=== PATIENT | male | born 1960 | race African-American/Black ===

== ENCOUNTER 2025-08-27 14:52 | Emergency (ER) | payer BC, SELFPAY ==
--- OUTSIDE RECORDS SUMMARY | 2025-08-20 11:20 | XMS_ITS | Encounter Summary ---
Author Organization [facility] Address [address] [place] [address] Phone Care Team Providers Care Plan Consultant Name Role Phone Marino Baig MD Primary Care Provider [phone] Reason for Referral * Consultation (Routine) - AuthorizedSpecialtyDiagnoses / ProceduresReferred By ContactReferred To ContactCardiology Diagnoses Paroxysmal atrial fibrillation (Multi) Procedures Follow Up In Cardiology Stella Clarke MD [address] [place] [address], [address] [address] Phone: tel: fax: Stella Clarke MD [address] [place], [place] [address] [place] [address], [address] [address] Phone: tel: fax: Referral IDStatusReasonStart DateExpiration DateVisits RequestedVisits [id number]/24/202511/24/202611 Reason for Visit * ReasonCommentsFollow-up6 month follow up for Cardiomyopathy, unspecified type * Consultation (Routine) - AuthorizedSpecialtyDiagnoses / ProceduresReferred By ContactReferred To ContactCardiology Diagnoses Cardiomyopathy, unspecified type (Multi) Procedures Follow Up In Cardiology Stella Clarke MD [address] [facility], [address] [address] Phone: tel: fax: Stella Clarke MD [address] [facility], [address] [address] Phone: tel: fax: Referral IDStatReesaStmark DateExpiration DateVisits RequestedVisits [id number]/23/20248/ Encounter Details DateTypeDepartmentCare Team (Latest Contact Info)Xzjokccwgod99/24/2025 11:20 AM ESTOffice Visit [facility] [address] [phone] Stella Clarke MD [address] [facility], [address] [address] Dyspnea, unspecified type (Primary Dx); Cardiomyopathy, unspecified type (Multi); Paroxysmal atrial fibrillation (Multi); Palpitations; Mixed hyperlipidemia; Essential hypertension, benign; BMI 33.0-33.9,adult; Never smoked tobacco Discharge Disposition: Home Social History Tobacco UseTypesPacks/DayYears UsedDateSmoking Tobacco: NeverSmokeless Tobacco: NeverAlcohol UseStandard Drinks/WeekCommentsYes4 (1 standard drink = 0.6 oz pure alcohol)Sex and Gender InformationValueDate RecordedSex Assigned at BirthNot on fileLegal WhaFrae50/26/2022 6:21 PM ESTGender IdentityNot on fileSexual OrientationNot on filedocumented as of this encounter Last Filed Vital Signs Vital SignReadingTime TakenCommentsBlood Uuttovhu450/80110/20/2024 11:41 AM EST Elmjj208808/20/2025 11:41 AM ESTTemperature--Respiratory Rate--Oxygen Saturation-- Inhaled Oxygen Concentration--Eetjdq672 kg (248 lb)08/20/2025 11:41 AM ESTHeight 182.9 cm (6')08/20/2025 11:41 AM ESTBody Mass Index33.6308/20/2025 11:41 AM EST documented in this encounter Functional Status * BPAnswerDate of PfxfktqmhjKqprwg151/8011 11:41 AM Marlene Rahman CMA * PulseAnswerDate of OhhggbhnuiUwmcdw3545/24/2025 11:41 AM Marlene Rahman CMA documented as of this encounter Patient Instructions * Patient Instructions* Debbie North LPN - 08/20/2025 11:20 AM EST Please bring all medicines, vitamins, and herbal supplements with you when you come to the office. Prescriptions will not be filled unless you are compliant with your follow up appointments or have a follow up appointment scheduled as per instruction of your physician. Refills should be requested at the time of your visit. BMI was above normal measurement. Current weight: 112 kg (248 lb) Weight change since last visit (-) denotes wt loss -2 lbs Weight loss needed to achieve BMI 25: 64.1 Lbs Weight loss needed to achieve BMI 30: 27.3 Lbs Provided instructions on dietary changes. * Attachments The following attachments cannot be sent through Care Everywhere. * Heart Healthy Diet (Azeri) documented in this encounter Progress Notes * Stella Clarke MD - 08/20/2025 11:20 AM EST Chief Complaint Patient presents with Follow-up 6 month follow up for Cardiomyopathy, unspecified type Christ Gardner is a 65 y.o. male HPI Patient here for follow-up and management for previous evaluation for fatigue tiredness and shortness of breath, hypertension and remote history of atrial fibrillation. Since last time I saw him he denies any cardiac complaint. Described functional class I. He denies chest pain, lightheadedness, dizziness or syncope. His event monitor failed to demonstrate any arrhythmia. ASSESSMENT: 1. Remote evaluation for symptoms of fatigue, tiredness and shortness of breath following recent COVID-19 infection and pneumonia. Completely resolved. [facility] 2 hypertension well-controlled 3. Remote episode paroxysmal atrial fibrillation no recent recurrence or palpitation his event monitor failed to demonstrate any arrhythmia 4. Mild cardiomyopathy in the past, improved medical therapy. Send echocardiogram showed LVEF around 50-55% 5. No evidence of sleep apnea clinically. 6. Questionable history of stroke seen by neurology. 7.. Hyperlipidemia starting on atorvastatin suboptimally controlled RECOMMENDATIONS: 1. We discussed anticoagulation. His recent event monitor failed to demonstrate any arrhythmia. Patient elected to remain on antiplatelet therapy 2. I reviewed the result of his recent lab work and I suggest switching him from atorvastatin to rosuvastatin 40 to optimize lipid management 3. I advised him to exercise and try to lose some weight 4. I advised him to notify me change in cardiac status or symptoms 5. I will see him back in 1 year and follow-up Review of Systems All other systems reviewed and are negative. Vitals: 08/20/25 1141 BP: 135/80 BP Location: Left arm Patient Position: Sitting Pulse: 64 Weight: 112 kg (248 lb) Height: 1.829 m (6') Objective Physical Exam Constitutional: Appearance: Normal appearance. HENT: Nose: Nose normal. Neck: Vascular: No carotid bruit. Cardiovascular: Rate and Rhythm: Normal rate. Pulses: Normal pulses. Heart sounds: Normal heart sounds. Pulmonary: Effort: Pulmonary effort is normal. Abdominal: General: Bowel sounds are normal. Palpations: Abdomen is soft. Musculoskeletal: General: Normal range of motion. Cervical back: Normal range of motion. Right lower leg: No edema. Left lower leg: No edema. Skin: General: Skin is warm and dry. Neurological: General: No focal deficit present. Mental Status: He is alert. Psychiatric: Mood and Affect: Mood normal. Behavior: Behavior normal. Thought Content: Thought content normal. Judgment: Judgment normal. Allergies Penicillins Current Medications Current Outpatient Medications Medication Instructions ascorbic acid, vitamin C, 500 mg capsule 1 capsule, Daily aspirin 81 mg, Daily celecoxib (CELEBREX) 200 mg, Daily before breakfast cholecalciferol (VITAMIN D-3) 125 mcg, Daily FLUoxetine (PROZAC) 20 mg, Daily glucosamine/chondr gusman A sod (OSTEO BI-FLEX ORAL) 1 capsule, Daily multivit-min/ferrous fumarate (MULTI VITAMIN ORAL) 1 tablet, Daily omeprazole (PRILOSEC) 20 mg, Daily rosuvastatin (CRESTOR) 40 mg, oral, Daily Tiadylt ER 360 mg, oral, Daily Assessment/Plan 1. Dyspnea, unspecified type 2. Cardiomyopathy, unspecified type (Multi) Follow Up In Cardiology 3. Paroxysmal atrial fibrillation (Multi) Follow Up In Cardiology 4. Palpitations 5. Mixed hyperlipidemia rosuvastatin (Crestor) 40 mg tablet 6. Essential hypertension, benign 7. BMI 33.0-33.9,adult 8. Never smoked tobacco Scribe Attestation By signing my name below, IDebbieTrevor HERCULES , Scribe attest that this documentation has been prepared under the direction and in the presence of MD Earnest. Provider Attestation - Scribe documentation All medical record entries made by the Scribe were at my direction and personally dictated by me. Ihave reviewed the chart and agree that the record accurately reflects my personal performance of the history, physical exam, discussion and plan. documented in this encounter Plan of Treatment DateTypeDepartmentCare Team (Latest Contact Info)Flwfyrjsdga02/24/2026 1:50 PM ESTOffice Visit [facility] [address] [phone] Stella Clarke MD [address] [facility], [address] [address] documented as of this encounter Visit Diagnoses Diagnosis Dyspnea, unspecified type- Primary Cardiomyopathy, unspecified type (Multi) Paroxysmal atrial fibrillation (Multi) Atrial fibrillation Palpitations Mixed hyperlipidemia Essential hypertension, benign BMI 33.0-33.9,adult Never smoked tobacco documented in this encounter Additional Health Concerns AssessmentNoted TimeA fall risk assessment has been completed for the patient 05/19/2024 10:38 AM EDTdocumented as of this encounter Care Teams Team MemberRelationshipSpecialtyStart DateEnd Date Marino Baig MD [address] [place] [address] PCP - GeneralInternal Dodccxsz35/24/25documented as of this encounter
[2025-08-27 14:58] VITALS: BP 172/105; PULSE 86; TEMP 37; O2SAT 99; BMI 32.5
--- NOTE | 2025-08-27 15:17 | ED_ITS ---
HPI HPI - General Adult General Chief complaint: Extremity Problem, Nontraumatic Stated complaint: L CALF PAIN Time Seen by Provider: 08/27/25 15:04 Source: patient Mode of arrival: Wheelchair History of Present Illness HPI narrative: Patient is a 65-year-old male with a PMH of stroke and arrhythmia that presents with a few days of intermittent left calf pain. He denies any swelling and has not had any previous PE or DVTs. He denies any blunt trauma or injury to this leg. He notes he does have arthritis in the knees. He was at work today and when the pain started it last for about a minute and states it made him yell out and he almost fell to his knees. Related Data Home Medications ?Medication ?Instructions ?Recorded ?Confirmed aspirin 81 mg capsule 81 mg PO DAILY 08/27/2510/21 atorvastatin 40 mg tablet mg 08/27/25 celecoxib 200 mg capsule mg 08/27/25 diltiazem HCl 360 mg capsule,24 mg PO 08/27/25 hr,extended release (Tiadylt ER) fluoxetine 20 mg capsule mg 08/27/25 omeprazole 20 mg capsule,delayed mg 08/27/25 release Previous Rx's ?Medication ?Instructions ?Recorded ibuprofen 600 mg tablet 600 mg PO Q8H 5 days #15 tab s 08/27/25 Allergies Allergy/AdvReac Type Severity Reaction Status Date / Time Penicillins Allergy Unknown Unknown Verified 08/27/25 15:03 Opioid HPI Opioid Management Most Recent Opioid Data: Last Pain Scale 10 Today, 14:58 Review of Systems ROS Status of ROS 10 or more systems reviewed and unremark able except as noted in history and below PFSH PFSH Social History Little interest or pleasure in doing things: not at all Feeling down, depressed, or hopeless: not at all Exam Narrative Exam Narrative: General: No distress, age-appropriate Skin: Warm, dry, no pallor. No rash. Head: Normocephalic, atraumatic. Neck: Supple, non-tender. Eye: Pupils are equal, round and EOMI. No scleral icterus. Ears, Nose, Mouth, and Throat: No nasal mucosal hypertrophy. Oral mucosa is moist, no posterior oropharynx erythema, uvula is mid-line Cardiovascular: Regular Rate and Rhythm without murmur, gallop or rub. Respiratory: No accessory muscle use or respiratory distress. Back: No midline thoracic or lumbar vertebral tenderness. Musculoskeletal: Full ROM of all extremities, no calf or popliteal tenderness, no palpable cords. Negative Homans on the left. No lower extremity edema. DP Pulse nonpalpable, Doppler audible. Neurological: A&O x4. No cranial nerve dysfunction observed. No truncal ataxia. Moves all extremities. Sensation intact. Psychiatric: Cooperative and interactive. Normal mood and affect. Constitutional Vital Signs, click to edit/add: Last Vital Signs Temp 98.6 F 08/27/25 14:58 Pulse 90 08/27/25 15:31 Resp 16 08/27/25 14:58 BP 162/98 H 08/27/25 18:05 Pulse Ox 99 08/27/25 18:05 O2 Del Method Room Air 08/27/25 14:58 Documenting provider has reviewed patient's vital signs: yes Course Vital Signs Vital signs: Vital Signs Temperature 98.6 F 08/27/25 14:58 Pulse Rate 86 08/27/25 14:58 Respiratory Rate 16 08/27/25 14:58 Blood Pressure 172/105 H 08/27/25 14:58 Pulse Oximetry 99 08/27/25 14:58 Oxygen Delivery Method Room Air 08/27/25 14:58 Temperature 98.6 F 08/27/25 14:58 Pulse Rate 90 08/27/25 15:31 Respiratory Rate 16 08/27/25 14:58 Blood Pressure 162/98 H 08/27/25 18:05 Pulse Oximetry 99 08/27/25 18:05 Oxygen Delivery Method Room Air 08/27/25 14:58 Medical Decision Making [facility] Narrative Medical decision making narrative: 65-year-old male with history of stroke and A.Fib presenting with several days of intermittent left calf pain, including a sudden severe episode today. Differential included DVT, arterial insufficiency, muscle strain/spasm, tendon injury, and neuropathic pain. Patient denied swelling, redness, trauma, or neurologic symptoms. EKG on arrival in NSR, HR 80, abnormal left axis deviation. Physical exam without distal neurovascular deficits or signs of ischemia. Given concern for possible vascular etiology, a venous Doppler ultrasound of the left lower extremity was obtained and was negative for DVT. CBC and BMP were within normal limits, making infection, metabolic disturbance, or significant systemic process unlikely. Presentation most consistent with musculoskeletal etiology such as muscle strain or spasm. Patient on Celebrex for his knees, will have him discontinue this and trial ibuprofen 600 mg every 8 hours for 3 to 5 days to evaluate for improvement. No evidence of acute limb ischemia, compartment syndrome, or venous thromboembolism at this time. Thorough discussion with patient about his lab results and further workup possibly needed if his pain persist despite NSAIDs and activity modification. Patient was stable for discharge with supportive care instructions, return precautions, and recommendation for outpatient follow- up with PCP. Differential Diagnosis Differential Diagnosis: DVT, PAD/claudication, cramp, calf strain, neuropathic Lab Data Lab results reviewed: Yes I reviewed the patient's lab results Labs: Lab Results 08/27/25 Range/Units 15:24 WBC 6.0 (4.0-11.0) 10^3/uL RBC 4.85 (4.70-6.10) 10^6/uL Hgb 15.1 (14.0-18.0) g/dL Hct 44.2 (42.0-54.0) % MCV 91.1 (80.0-94.0) fL MCH 31.1 (25.9-34.0) pg MCHC 34.2 (29.9-35.2) g/dL RDW 12.5 (11.0-15.0) % Plt Count 213 (150-450) 10^3/uL MPV 9.4 L (9.5-13.5) fL Neut % (Auto) 54.9 (43.0-75.0) % Lymph % (Auto) 32.3 (20.5-60.0) % [place] % (Auto) 9.7 (1.7-12.0) % Eos % (Auto) 2.0 (0.9-7.0) % Baso % (Auto) 0.8 (0.2-2.0) % Neut # (Auto) 3.3 (1.4-6.5) 10^3/uL Lymph # (Auto) 1.9 (1.2-3.8) 10^3/uL [place] # (Auto) 0.6 (0.3-0.8) 10^3/uL Eos # (Auto) 0.1 (0.0-0.7) 10^3/uL Baso # (Auto) 0.1 (0.0-0.1) 10^3/uL Abs Immat Gran (auto) 0.02 (0.00-0.03) 10^3/uL Imm/Tot Granulo (auto) 0.3 (0.0-0.5) % Sodium 141 (136-145) mmol/L Potassium 4.2 (3.5-5.1) mmol/L Chloride 102 (98-107) mmol/L Carbon Dioxide 30.0 (21.0-32.0) mmol/L Anion Gap 13.2 BUN 16.0 (7.0-18.0) mg/dL Creatinine 1.05 (0.70-1.30) mg/dL Est GFR ( Amer) >60 (>=60 mL/min/1.73m^2) Est GFR (Non-Af Amer) >60 (>=60 mL/min/1.73m^2) BUN/Creatinine Ratio 15.2 Glucose 99 (74-106) mg/dL Calcium 9.2 (8.5-10.1) mg/dL Imaging Data Left US Doppler LE: Radiologist's impression: No evidence of deep venous thrombosis in the left lower extremity ECG Data Attestation: ?I have reviewed the pertinent ECG results. Discharge Plan Discharge Chief Complaint: Extremity Problem, Nontraumatic Clinical Impression: Calf pain Patient Disposition: Home, Self-Care Time of Disposition Decision: 17:33 Condition: Good Mode of Transportation: Private Vehicle Prescriptions / Home Meds: New ibuprofen 600 mg tablet 600 mg PO Q8H 5 Days Qty: 15 0RF No Action celecoxib 200 mg capsule atorvastatin 40 mg tablet diltiazem HCl [Tiadylt ER] 360 mg capsule,extended release 24 hr PO omeprazole 20 mg capsule,delayed release(DR/EC) fluoxetine 20 mg capsule aspirin 81 mg capsule 81 mg PO DAILY Print Language: Telugu Instructions: Leg Cramps (ED) Additional Instructions: Stop Celebrex, we have prescribed you ibuprofen 600 mg to take every 8 hours. Hydration Muscle cramps can be triggered by dehydration or electrolyte imbalance. * Drink plenty of water over the next 24?48 hours. When to Seek Immediate Medical Attention Return to the ER right away if you experience: * Increasing or constant calf pain * New swelling, redness, or warmth in the leg * Numbness, tingling, coldness, or pale color in the foot * Inability to walk or worsening weakness * Chest pain, shortness of breath, or sudden dizziness * Any new or concerning symptoms Follow-Up * Follow up with your primary care provider within 3?5 days for reassessment. * If episodes of sudden severe leg pain continue, follow-up may include additional imaging such as an arterial study or musculoskeletal evaluation. Referrals: Physician,Non-Staff, [Primary Care Provider] - 1 week Discharge Date/Time: 08/27/25 18:11
--- NOTE | 2025-08-27 15:21 | ECG_ITS ---
[facility] Test Date: 2025-08-27 Pat Name: DERIK MADDOX Department: Room: - Gender: Male Medical Observer: : 1960 Requested By: [id number] Order Number: [id number] Reading MD: Micah Schaefer Measurements Intervals [place]le Rate: 80 P: 27 OR: 132 QRS: -31 QRSD: 94 T: 14 QT: 380 QTc: 415 Interpretive Statements 1100 Sinus rhythm 5222 Moderate voltage criteria for LVH, may be normal variant 7200 Abnormal left axis deviation 9130 borderline ECG Compared to ECG 08/12/2020 07:50:38 Left ventricular hypertrophy now present Sinus tachycardia no longer present Electronically Signed On 08-27-2025 15:57:13 EST by Micah Schaefer
--- OUTSIDE RECORDS SUMMARY | 2025-08-27 15:30 | XMS_ITS | Clinical Summary ---
Author Organization [facility] Address [address] [place] [address] Phone Care Team Providers Care Psychiatric Technician Name Role Phone Marino Baig MD Primary Care Provider [phone] Allergies Active AllergyReactionsCriticalityNoted JdyeVipxuzybNwwfktykmvxUxyxwbr23/15/2024 Medications MedicationSigDispense QuantityRefillsLast FilledStart DateEnd DateStatus multivit-min/ferrous fumarate (MULTI VITAMIN ORAL) Take 1 tablet by mouth once daily.Active ascorbic acid, vitamin C, 500 mg capsule Take 1 capsule by mouth once daily.Active aspirin 81 mg EC tablet Take 1 tablet (81 mg) by mouth once daily.2Active cholecalciferol (Vitamin D-3) 125 MCG (5000 UT) capsule Take 1 capsule (125 mcg) by mouth once daily.Active omeprazole (PriLOSEC) [address] capsule Take 1 capsule (20 mg) by mouth once daily.Active Tiadylt ER 360 mg 24 hr capsule Indications:PalpitationsTAKE 1 CAPSULE BY MOUTH EVERY DAY 90 capsule 5Active FLUoxetine (PROzac) 20 mg capsule 1 capsule (20 mg) once daily.Active celecoxib (CeleBREX) 200 mg capsule Take 1 capsule (200 mg) by mouth once daily in the morning. Take before meals. 5Active glucosamine/chondr gusman A sod (OSTEO BI-FLEX ORAL) Take 1 capsule by mouth early in the morning..Active rosuvastatin (Crestor) 40 mg tablet Indications:Mixed hyperlipidemiaTake 1 tablet (40 mg) by mouth once daily. 90 tablet 6Active atorvastatin (Lipitor) 40 mg tablet Take 1 tablet (40 mg) by mouth once daily.Discontinued (Therapy completed) Active Problems ProblemNoted DateDiagnosed DateNever smoked ketuiag5808/20/2025MI 33.0-33.9,adult 05/19/2024Stroke (cerebrum)05/19/20249004Eujmtgmbehjntz16/15/8805Ppeohbe29/15/2024 Essential hypertension, xneptl0410/11/20236548Bihomhluxfzfvu15/15/2024alpitations 10/11/2023aroxysmal atrial qzglsefafcnb79/15/2024 Encounters DateTypeDepartmentCare NqxdIghrjoduytq72/24/2025 11:20 AM ESTOffice Visit [address] [phone] Stella Clarke MD Dyspnea, unspecified type (Primary Dx); Cardiomyopathy, unspecified type (Multi); Paroxysmal atrial fibrillation (Multi); Palpitations; Mixed hyperlipidemia; Essential hypertension, benign; BMI 33.0-33.9,adult; Never smoked tobacco Discharge Disposition: Home08/20/20258763Qbbivp81/03/2025Refill [address] [phone] Stella Clarke MD Palpitationsfrom Last 3 Months Immunizations ImmunizationAdministration DatesNext DueFlu vaccine, trivalent, preservative free, no egg protein, age 6 months or greater (Flucelvax)07/18/2025 Family History Medical HistoryRelationNameCommentsHeart diseaseFatherHypertensionFatherHeart diseaseMotherHypertensionMotherLung cancerMotherRelationNameStatusCommentsFather Mother Social History Tobacco UseTypesPacks/DayYears UsedDateSmoking Tobacco: NeverSmokeless Tobacco: Never Tobacco Cessation:Counseling Given: Not Answered Alcohol UseStandard Drinks/WeekCommentsYes4 (1 standard drink = 0.6 oz pure alcohol)Sex and Gender InformationValueDate RecordedSex Assigned at BirthNot on fileLegal EpxPrue97/26/2022 6:21 PM ESTGender IdentityNot on fileSexual OrientationNot on file Last Filed Vital Signs Vital SignReadingTime TakenCommentsBlood Diapwghg355/80110/20/2024 11:41 AM EST Qgszd072408/20/2025 11:41 AM ESTTemperature--Respiratory Rate--Oxygen Saturation-- Inhaled Oxygen Concentration--Wivdph905 kg (248 lb)08/20/2025 11:41 AM ESTHeight 182.9 cm (6')08/20/2025 11:41 AM ESTBody Mass Index33.6308/20/2025 11:41 AM EST Plan of Treatment DateTypeDepartmentCare Team (Latest Contact Info)Bdctadqnoin47/24/2026 1:50 PM ESTOffice Visit [facility] [address] [facility] [place] [address] [place] [address] Stella Clarke MD [address] [facility] [address] [place] [address] [place] [address] Health MaintenanceDue DateLast DoneCommentsCT Huuqfsqrjjfi1961FIT-DNA (Cologuard)1960FIT1960HIV Rdxuwakrg1961Lipid Panel1961 Poduxdiwjmrul1961MMR Vaccines (1 of 1 - Standard series)2Diabetes Byxeyfdya49/24/1979Hepatitis C Nzvinumvw52/24/1979DTaP/Tdap/Td Vaccines (1 - Tdap)1983PSA Prostate Cancer Ggbcgeszs56/24/2006Pneumococcal Vaccine (1 of 1 - PCV)2011Zoster Vaccines (1 of 2)2011Yearly Adult Physical , 07/11/2024, 02/09/20230864Jhydukwymqa92 Colorectal Cancer Vgkxgqsyp97/23/2034RSV High Risk: (Elderly (60+) or Population) (1 - 1-dose 75+ series)6COVID-19 VaccineCompleted 07/18/2025, 07/11/2024, 07/25/2023, Additional history existsInfluenza Vaccine Otwjviedj68/22/2025HIB VaccinesAged OutNo longer eligible based on patient's age to complete this topicHPV VaccinesAged OutNo longer eligible based on patient's age to complete this topicHepatitis A VaccinesAged OutNo longer eligible based on patient's age to complete this topicHepatitis B VaccinesAged OutNo longer eligible based on patient's age to complete this topicIPV VaccinesAged OutNo longer eligible based on patient's age to complete this topicMeningococcal VaccineAged OutNo longer eligible based on patient's age to complete this topic Rotavirus VaccinesAged OutNo longer eligible based on patient's age to complete this topic Insurance Care Teams Team MemberRelationshipSpecialtyStart DateEnd Date Marino Baig MD [address] [place] [phone] PCP - GeneralInternal Bytevxaj88/24/25
--- OUTSIDE RECORDS SUMMARY | 2025-08-27 15:30 | XMS_ITS | Clinical Summary ---
Author Organization [facility] Healthcare Address [address] [place] [address] Care Team Providers Care Operational Risk Consultant Name Role Phone Unavailable Primary Care Provider Unavailabl e Social History Tobacco UseTypesPacks/DayYears UsedDateSmoking Tobacco: Never AssessedSex and Gender InformationValueDate RecordedSex Assigned at BirthNot on fileLegal Sex Male12/09/2022 7:21 PM EDTGender IdentityNot on fileSexual OrientationNot on file Last Filed Vital Signs Vital SignReadingTime TakenCommentsBlood Hvqovbnn402/9112 12:00 PM EST Pulse--Temperature--Respiratory Rate--Oxygen Saturation--Inhaled Oxygen Concentration--Tgkcah908 kg (261 lb 12.8 oz)12/11/2021 12:00 PM MIVJnufwl152.9 cm (6')12/11/2021 12:00 PM EDTBody Mass Index35.51012/11/2021 12:00 PM EDT Plan of Treatment DateTypeDepartmentCare Team (Latest Contact Info)Exphjcgwqtj85/22/2025 10:00 AM ESTOffice Visit [facility] [address] [facility] [place] [place] [address] Bud Elizalde, [address] [place], [place] [id number] Health MaintenanceDue DateLast DoneCommentsCT Mpopjztsgmvb1961olonoscopy 1961olorectal Cancer Ploqptbxh1961FIT-DNA1961FIT1961 FOBT1961 7972Dsptbaaojjsvs1961OVID-19 Vaccine ( season) /2023, 07/25/2023, 03/13/2022, Additional history existsInfluenza AjnrwcaAiferufpf47/22/2025, 07/11/2024, 07/25/2023, Additional history exists Pneumococcal Vaccine: Pediatrics (0 to 5 Years) and At-Risk Patients (6 to 64 Years)Aged OutNo longer eligible based on patient's age to complete this topic Insurance
--- OUTSIDE RECORDS SUMMARY | 2025-08-27 15:30 | XMS_ITS | Encounter Summary ---
Author Organization [facility] Address [address] [place] [address] Phone Care Team Providers Care Laminating Machine Operator Helper Name Role Phone Marino Baig MD Primary Care Provider [phone] Encounter Details DateTypeDepartmentCare Team (Latest Contact Info)Ernsxfgzaap36/24/2025Travel Social History Tobacco UseTypesPacks/DayYears UsedDateSmoking Tobacco: NeverSmokeless Tobacco: NeverAlcohol UseStandard Drinks/WeekCommentsYes4 (1 standard drink = 0.6 oz pure alcohol)Sex and Gender InformationValueDate RecordedSex Assigned at BirthNot on fileLegal YjuJkbw04/26/2022 6:21 PM ESTGender IdentityNot on fileSexual OrientationNot on filedocumented as of this encounter Functional Status * BPAnswerDate of XlpbwcsvwgLdiyuq368/80110/20/2024 11:41 AM Marlene Rahman CMA * PulseAnswerDate of IghtjzrktnOszxfr0868/24/2025 11:41 AM Marlene Rahman CMA documented as of this encounter Plan of Treatment DateTypeDepartmentCare Team (Latest Contact Info)Lscmiqxwowu17/24/2026 1:50 PM ESTOffice Visit [facility] [address] [place] [address] Stella Clarke MD [address] [facility] [address] [place] [address] documented as of this encounter Visit Diagnoses Not on filedocumented in this encounter Additional Health Concerns AssessmentNoted TimeA fall risk assessment has been completed for the patient 05/19/2024 10:38 AM EDTdocumented as of this encounter Care Teams Team MemberRelationshipSpecialtyStart DateEnd Date Marino Baig MD [address] [phone] PCP - GeneralInternal Pxabahix16/24/25documented as of this encounter
--- OUTSIDE RECORDS SUMMARY | 2025-08-27 15:30 | XMS_ITS | Clinical Summary ---
Author Organization [employer] Address [id number] [address] [place] [address] Care Team Providers Care Caser Name Role Phone Anitha Sweeney APRN-ALPINE PATROLLER Primary Care Provide r Allergies Active AllergyReactionsCriticalityNoted TvttAettxvghNzehtirqfql56/10/2018 As a child Medications MedicationSigDispense QuantityRefillsLast FilledStart DateEnd DateStatus dilTIAZem CD (CARDIZEM CD) 240 mg 24 hr capsule TAKE 1 CAPSULE BY MOUTH EVERY DAY 90 capsule Active hz-ZP-I4-N9-mjnbg-askw#222 200 mcg-300 unit-20 mcg tablet Take 1 tablet by mouth in the morning.Active ascorbic acid, vitamin C, 500 mg capsule Take 1 capsule by mouth in the morning.Active cholecalciferol, vitamin D3, (VITAMIN D3) 5,000 units capsule Take 1 capsule (5,000 Units total) by mouth in the morning.Active aspirin 81 mg Take 1 tablet (81 mg total) by mouth in the morning.2Active magnesium 200 mg tablet Take 500 mg by mouth.Active fexofenadine (EDEN) 180 mg tablet TAKE 1 TABLET (180 MG TOTAL) BY MOUTH IN THE MORNING 90 tablet 4Active glucosamine/chondr gusman A sod (OSTEO BI-FLEX ORAL) Take by mouth.Active omeprazole (PriLOSEC) 20 mg capsule Take 1 capsule (20 mg total) by mouth in the morning. 90 capsule 304/5Active celecoxib (CeleBREX) 200 mg capsule TAKE 1 CAPSULE BY MOUTH IN THE MORNING 30 capsule 505/5Active FLUoxetine (PROzac) 20 mg capsule TAKE 1 CAPSULE (20 MG TOTAL) BY MOUTH IN THE MORNING 90 capsule 5Active atorvastatin (LIPITOR) 40 mg tablet TAKE 1 TABLET (40 MG TOTAL) BY MOUTH IN THE MORNING 90 tablet 506Active Active Problems ProblemNoted DateDiagnosed DateEssential wetaggbdqdym14/10/2018Irregular heart beat06/06/2018Gastroesophageal reflux disease without /10/2018 Encounters DateTypeDepartmentCare QqcrVauyvsrmsml68/12/2025Orders Only [facility] [address] [place], [place] [address] [phone] Anitha Sweeney APRN-CNP Chronic pain of both knees (Primary Dx)08/08/2025Results [facility] [address] [place] [phone] Anitha Sweeney APRN-CNP CBC auto differential, Comprehensive metabolic panel, Lipid profile, Additional followed-up results: 4:03 PM EST - 08/07/2025 11:59 PM ESTHospital Encounter [facility] [address] [facility] [place] [phone] Chronic pain of both knees Discharge Disposition: Home08/07/2025 3:55 PM EST - 08/07/2025 4:02 PM EST Hospital Encounter [facility] [address] [place] [address] Chronic pain of both knees Discharge Disposition: Home08/07/20252932Hczmie10/22/2025 11:00 AM EDTOffice Visit [facility] [address] [place] [phone] Anitha Sweeney APRN-CNP Wellness examination (Primary Dx); Mixed hyperlipidemia; Essential hypertension; Gastroesophageal reflux disease without esophagitis; Encounter for screening for malignant neoplasm of prostate; Anxiety; Impaired fasting glucose; Chronic pain of both knees07/18/20255106Qybsfo68/24/2025 3:00 PM EDTOffice Visit [facility] [address] [place] [address] Anitha Sweeney APRN-TERRI Acute non-recurrent maxillary sinusitis (Primary Dx)06/20/2025Travelfrom Last 3 Months Immunizations ImmunizationAdministration DatesNext DueCOVID-19, mRNA, LNP-S, PF, 100mcg/0.5mL Dose03/13/2022Influenza, Im Flucelvax (Pf)07/17/2021Influenza, Im Trivalent Ufmtubstkocq17/01/2020Influenza, Injectable, Mdck, Preservative Free, Quad 07/17/2021Influenza, Injectable, quadrivalent (PF)06/23/2022Influenza, Mlvjeaorzbo35/29/0920PJFL-XTY-4 (COVID-19) Vaccine, Wwoxjkzdpbc47/29/2023 Family History Medical HistoryRelationNameCommentsCancerFatherArthritisMotherFlorineDiabetes MotherFlorineHeart diseaseMotherFlorineHypertensionMotherFlorineLung cancer MotherFlorineMental illnessSisterCarolRelationNameStatusCommentsFatherDeceased MotherFlorineDeceasedSisterCarol Social History Tobacco UseTypesPacks/DayYears UsedDateSmoking Tobacco: NeverSmokeless Tobacco: Never Tobacco Cessation:Counseling Given: Not Answered Alcohol UseStandard Drinks/WeekCommentsYes0 (1 standard drink = 0.6 oz pure alcohol)3-4 beers dailySocial Connection and Isolation PanelAnswerDate Recorded Frequency of Communication with Friends and FamilyMore than three times a week 07/05/2020Frequency of Social Gatherings with Friends and FamilyThree times a week07/05/2020Attends Tenriism EbfxcixvMioyp95/09/2020Active Member of Clubs or FncuqnyrpxpngUx00/09/2020Attends Club or Organization WomqwslfKowux69/09/2020 Marital BkxuqpSznqgev34/09/2020AUDIT-CAnswerDate RecordedFrequency of Alcohol Consumption4 or more times a week07/05/2020Average Number of Drinks5 or 6 07/05/2020Frequency of Binge KhopwyegSupzhfy05/09/2020Overall Financial Resource Strain (CARDIA)AnswerDate RecordedDifficulty of Paying Living ExpensesNot very hard07/05/2020PHQ-2AnswerDate RecordedTotal Gerqo507Fingunnison [facility] [place] of Occupational [facility] - Occupational Stress QuestionnaireAnswerDate Recorded Feeling of StressRather much07/05/2020Exercise Vital SignAnswerDate RecordedDays of Exercise per Week3 days07/05/2020Minutes of Exercise per Orhwzby61 min 07/05/2020PRAPARE - TransportationAnswerDate RecordedLack of Transportation (Medical)No07/05/2020Lack of Transportation (Non-Medical)No07/05/2020Childcare AnswerDate VusrjmqwGwjlzppfcCi28/16/2019EmploymentAnswerDate RecordedEmployment No05/12/2019Hunger ScreeningAnswerDate RecordedWithin the past 12 months we worried whether our food would run out before we got money to buy more.Never True07/18/2025Within the past 12 months the food we bought just didn't last and we didn't have money to get more.Never True07/18/2025Purpose - LifeAnswerDate RecordedPurpose and direction in ooxjZoxoivm38/15/2021EducationAnswerDate RecordedWhat is the highest level of school you have completed or the highest degree you have received?12th grade05/12/2019Sex and Gender InformationValueDate RecordedSex Assigned at BirthNot on fileLegal OudQthv2506/01/2018 2:49 PM EDT Gender IdentityNot on fileSexual OrientationNot on file Last Filed Vital Signs Vital SignReadingTime TakenCommentsBlood Ovbgkqfk628/7607/18/2025 11:07 AM EDT Kvqln348707/18/2025 11:07 AM WDFUuohazvjtlq52.1 ??C (98.8 ??F)06/20/2025 3:04 PM EDTRespiratory Maez5232 11:07 AM EDTOxygen Xpduwerdnj46%07/18/2025 11:07 AM EDTInhaled Oxygen Concentration--Lvnema669.2 kg (243 lb)07/18/2025 11:07 AM DUOHzthaf217.6 cm (5' 11.5 )07/18/2025 11:07 AM EDTBody Mass Index33.42 07/18/2025 11:07 AM EDT Plan of Treatment DateTypeDepartmentCare Team (Latest Contact Info)Uutqbaptklo88/28/2026 11:00 AM EDTOffice Visit [facility] [address] [place] [address] Anitha Sweeney, NICOLA-ALPINE PATROLLER [address] [place] [address] Health MaintenanceDue DateLast DoneCommentsStatin Use: Eliwainytzyffu1961 DTaP,Tdap and Td Vaccines (1 - Tdap)1980Zoster (Shingles) Vaccine (1 of 2) 2011dult BMI Follow Up [facility] BMI Screening Depression Mncrjeqox97Tobacco Screening /0658Usamskmlbfr39/23/202912/, 4RSV ( or age 60+ yrs) (1 - 1-dose 75+ series)6COVID-19 VaccineCompleted 07/18/2025, 07/11/2024, 07/25/2023, Additional history existsInfluenza Vaccine Fhmemfhpq49/22/2025, 07/11/2024, 07/25/2023, Additional history exists Medical Devices Not on file Procedures Procedure NamePriorityDate/TimeAssociated DiagnosisCommentsXR KNEE LT 3 VWS Bqkhgem6108/07/2025 4:30 PM EST Chronic pain of both knees XR KNEE RT 3 JHZQxtczbj04/11/2025 4:30 PM EST Chronic pain of both knees HEMOGLOBIN W6XWrzwsjx44/11/2025 4:24 PM EST Impaired fasting glucose PROSTATIC SPECIFIC ANTIGEN YELMQUHksjssn20/11/2025 4:24 PM EST Encounter for screening for malignant neoplasm of prostate LIPID GRVJKUYQemopzs32/11/2025 4:24 PM EST Wellness examination COMPREHENSIVE METABOLIC RISGLTukdofr22/11/2025 4:24 PM EST Wellness examination CBC WITH AUTO APCWRFGFLGABRhudqjb29/11/2025 4:24 PM EST Wellness examination PROVATION ZMRYFQXQWCJNzhatzr32/23/2024 6:15 AM EST from Last 3 Months or Most Recently Relevant to Health Maintenance Results * X-ray knee left 3 views (08/07/2025 4:30 PM EST)Anatomical RegionLaterality ModalityLower Extremities, MSK, KneeLeftComputed RadiographySpecimen (Source) Anatomical Location / LateralityCollection Method / VolumeCollection Time Received Time08/07/2025 5:47 PM EST Narrative 08/07/2025 5:48 PM EST CLINICAL INFORMATION: Chronic pain of both knees TECHNIQUE: XR KNEE LT 3 VWS 3 views left knee were obtained. There is no acute osseous abnormality. No fracture seen. No obvious joint effusion. Mild osteoarthritic changes noted. IMPRESSION: Mild osteoarthritis. Finalized by Leonardo Cruz MD on 08/07/2025 5:48 PM Procedure Note Leonardo Cruz MD - 08/07/2025 CLINICAL INFORMATION: Chronic pain of both knees TECHNIQUE: XR KNEE LT 3 VWS 3 views left knee were obtained. There is no acute osseous abnormality. No fracture seen. No obvious joint effusion. Mild osteoarthritic changesnoted. IMPRESSION: Mild osteoarthritis. Finalized by Leonardo Cruz MD on 08/07/2025 5:48 PM Authorizing ProviderResult TypeResult StatusKendra Schlachter INFANT TODDLER LEAD TEACHER-CNPIMG DIAGNOSTIC IMAGING ORDERABLESFinal Result * X-ray knee right 3 views (08/07/2025 4:30 PM EST)Anatomical RegionLaterality ModalityLower Extremities, MSK, KneeRightComputed RadiographySpecimen (Source) Anatomical Location / LateralityCollection Method / VolumeCollection Time Received Time08/07/2025 5:48 PM EST Narrative 08/07/2025 5:48 PM EST CLINICAL INFORMATION: Chronic pain of both knees TECHNIQUE: XR KNEE RT 3 VWS 3 views the right knee were obtained. Mild osteoarthritic changes noted. No acute osseous abnormality. No joint effusion or fracture. IMPRESSION: Mild osteoarthritis. Finalized by Leonardo Cruz MD on 08/07/2025 5:48 PM Procedure Note Leonardo Cruz MD - 08/07/2025 CLINICAL INFORMATION: Chronic pain of both knees TECHNIQUE: XR KNEE RT 3 VWS 3 views the right knee were obtained. Mild osteoarthritic changes noted.No acute osseous abnormality. No joint effusion or fracture. IMPRESSION: Mild osteoarthritis. Finalized by Leonardo Cruz MD on 08/07/2025 5:48 PM Authorizing ProviderResult TypeResult StatusKendra Schinchter INFANT TODDLER LEAD TEACHER-CNPIMG DIAGNOSTIC IMAGING ORDERABLESFinal Result * CBC auto differential (08/07/2025 4:24 PM EST)ComponentValueRef RangeTest MethodAnalysis TimePerformed AtPathologist SignatureWBC5.44 - 11 X10^9/L 08/07/2025 11:06 PM [facility] LABORATORYRBC Count4.814.1 - 5.7 X10^12/L110/07/2024 11:06 PM [facility] Ztimzzgvax58.013 - 17 g/dL08/07/2025 11:06 PM [facility] IPDZCVEZKDNshjhoqmlx17.839 - 50 %08/07/2025 11:06 PM [facility] MUTWIDTYXAREL9169 - 100 fL08/07/2025 11:06 PM [facility] MQAVUUMKOTBSB07.327 - 34 pg08/07/2025 11:06 PM [facility] UJVWGPBWATAVWX66.432 - 36 g/dL08/07/2025 11:06 PM [facility] FXSEYCUITXWXK93.511.5 - 15 %08/07/2025 11:06 PM [facility] LABORATORYPlatelet Ivwix318901 - 450 X10^9/L110/07/2024 11:06 PM [facility] LABORATORYMPV8.17 - 12 fL08/07/2025 11:06 PM [facility] LABORATORYNeutrophils %45.8%08/07/2025 11:06 PM [facility] LABORATORYLymphocytes %41.4%08/07/2025 11:06 PM [facility] LABORATORYMonocytes %9.1%08/07/2025 11:06 PM [facility] LABORATORYEosinophils %2.4%08/07/2025 11:06 PM [facility] LABORATORYBasophils %1.3%08/07/2025 11:06 PM [facility] LABORATORYNeutrophils Absolute (A)2.51.5 - 6.6 X10^9/L110/07/2024 11:06 PM [facility] LABORATORYLymphocytes Absolute2.21.0 - 3.5 X10^9/L110/07/2024 11:06 PM [facility] LABORATORYMonocytes Absolute0.50.0 - 0.9 X10^9/L110/07/2024 11:06 PM [facility]ATORYEosinophils Absolute0.10.0 - 0.4 X10^9/L110/07/2024 11:06 PM [facility] LABORATORYBasophils Absolute0.10.0 - 0.2 X10^9L110/07/2024 11:06 PM [facility] LABORATORYDifferential TypeAUTOMATED BMNPUOIBVFCQ44/11/2025 11:06 PM [facility] LABORATORYSpecimen (Source)Anatomical Location / LateralityCollection Method / VolumeCollection TimeReceived TimeBloodVenous blood / UnknownVenipuncture / Pqgrdoi1508/07/2025 4:24 PM EST08/07/2025 4:25 PM EST Narrative Authorizing ProviderResult TypeResult StatusAnitha Sweeney INFANT TODDLER LEAD TEACHER-CNPLAB BLOOD ORDERABLESFinal ResultPerforming OrganizationAddressCity/State/ZIP CodePhone Number [facility] [address] [place] [address], * Prostatic specific antigen screen (08/07/2025 4:24 PM EST)ComponentValueRef RangeTest MethodAnalysis TimePerformed AtPathologist SignaturePROSTATIC SPEC ANT0.800.00 - 4.00 ng/mL08/07/2025 11:21 PM [facility] LABORATORYComment: The method used for this test is Atooma DXI chemiluminescent immunoassay. Values obtained by different assay methods cannot be used interchangeably. Specimen (Source)Anatomical Location / LateralityCollection Method / Volume Collection TimeReceived TimeBloodVenous blood / UnknownVenipuncture / Unknown 08/07/2025 4:24 PM EST08/07/2025 4:25 PM EST Narrative Authorizing ProviderResult TypeResult StatusAnitha Sweeney INFANT TODDLER LEAD TEACHER-CNPLAB BLOOD ORDERABLESFinal ResultPerforming OrganizationAddressCity/State/ZIP CodePhone Number [facility] [address] [place] [address], * (ABNORMAL) Hemoglobin A1c (08/07/2025 4:24 PM EST)ComponentValueRef RangeTest MethodAnalysis TimePerformed AtPathologist SignatureHEMOGLOBIN A1C6.1(H)4.4 - 5.6 %08/08/2025 5:54 AM [facility] LABORATORYComment: ?ADA Guidelines ?Result ?HgbA1c ? Normal : ? less than 5.7 % ? Prediabetes : ?5.7 % ??to 6.4 % Diabetes : > 6.4 % ?Use with caution in patients with abnormal hemoglobin variants as ??the half-life of red blood cells and in vivo glycation rates are ??affected. EST. AVERAGE FPGMEYA490nl/dL08/08/2025 5:54 AM [facility] LABORATORYSpecimen (Source)Anatomical Location / LateralityCollection Method / VolumeCollection TimeReceived TimeBloodVenous blood / UnknownVenipuncture / Goqwvpa4608/07/2025 4:24 PM EST08/07/2025 4:25 PM EST Narrative Authorizing ProviderResult TypeResult StatusKendra Sweeney INFANT TODDLER LEAD TEACHER-CNPLAB BLOOD ORDERABLESFinal ResultPerforming OrganizationAddressCity/State/ZIP CodePhone Number [facility] [address] [place] [phone], * Lipid profile (08/07/2025 4:24 PM EST)ComponentValueRef RangeTest Method Analysis TimePerformed AtPathologist HfnrlzjsjJRISFZGQATY701314 - 200 mg/dL 08/07/2025 11:17 PM [facility] ABDVPKJTYILLWXYWLNZUKP29957 - 150 mg/dL08/07/2025 11:17 PM [facility] LABORATORYHDL YKNECEBUHCL72>39 mg/dL08/07/2025 11:17 PM [facility] LABORATORYComment: HDL <40 mg/dL - High Risk HDL > or = 40mg/dL- Desirable HDL >60 mg/dL - Negative Risk LDL (CALC)97<130 mg/dL08/07/2025 11:17 PM [facility] Comment: LDL <100 mg/dL - Desirable LDL >160 mg/dL - High Risk CHOLESTEROL:HDL2.71.0 - 5.011/07/2025 11:17 PM [facility] LABORATORYVERY LOW VWLYPCIAVEM292 - 30 mg/dL08/07/2025 11:17 PM [facility] LABORATORYSpecimen (Source)Anatomical Location / Laterality Collection Method / VolumeCollection TimeReceived TimeBloodVenous blood / UnknownVenipuncture / Rjpyneh5208/07/2025 4:24 PM EST08/07/2025 4:25 PM EST Narrative Authorizing ProviderResult TypeResult StatusAnitha Sweeney INFANT TODDLER LEAD TEACHER-CNPLAB BLOOD ORDERABLESFinal ResultPerforming OrganizationAddressCity/State/ZIP CodePhone Number [facility] [address] [place] [phone], * Comprehensive metabolic panel (08/07/2025 4:24 PM EST)ComponentValueRef Range Test MethodAnalysis TimePerformed AtPathologist DkmippegaPIZCSS302786 - 146 mmol/L110/07/2024 11:17 PM [facility] LABORATORYPOTASSIUM4.3 3.5 - 5.0 mmol/L110/07/2024 11:17 PM [facility] GJTZPWCI50316 - 109 mmol/L110/07/2024 11:17 PM [facility] LABORATORYCARBON KWYAJCS1258 - 32 mmol/L110/07/2024 11:17 PM [facility] LABORATORYANION GAP75 - 15 mmol/L110/07/2024 11:17 PM [facility] LABORATORYBLOOD UREA VYKZDMNC454 - 27 mg/dL08/07/2025 11:17 PM [facility] LABORATORYCREATININE1.050.60 - 1.30 mg/dL 08/07/2025 11:17 PM [facility] LABORATORYComment:METHOD TRACEABLE TO IDMS CSAXALZNJXZSURK2507 - 99 mg/dL08/07/2025 11:17 PM [facility] LABORATORYCALCIUM9.68.5 - 10.5 mg/dL08/07/2025 11:17 PM [facility] LABORATORYTOTAL PROTEIN6.66.0 - 8.0 g/dL08/07/2025 11:17 PM [facility] LABORATORYALBUMIN4.23.2 - 5.3 g/dL 08/07/2025 11:17 PM [facility] LABORATORYALKALINE PHOSPHATASE 6039 - 130 U/L110/07/2024 11:17 PM [facility] IAKJQEWQBPUJM19 <=41 U/L110/07/2024 11:17 PM [facility] IFKSBXWQFNCDM08<=40 U/L110/07/2024 11:17 PM [facility] LABORATORYBILIRUBIN,TOTAL 0.50.3 - 1.2 mg/dL08/07/2025 11:17 PM [facility] EGFR Non-Race Nqfjrohyq27>=60 ml/min/1.73sq.m110/07/2024 11:17 PM [facility] LABORATORYComment: Reported eGFR is based on the CKD-EPI 2020 equation that does not use a race coefficient. Specimen (Source)Anatomical Location / LateralityCollection Method / Volume Collection TimeReceived TimeBloodVenous blood / UnknownVenipuncture / Unknown 08/07/2025 4:24 PM EST08/07/2025 4:25 PM EST Narrative Authorizing ProviderResult TypeResult StatusKendra Sweeney INFANT TODDLER LEAD TEACHER-CNPLAB BLOOD ORDERABLESFinal ResultPerforming OrganizationAddressCity/State/ZIP CodePhone Number [facility] [address] [place] [address], * Colonoscopy Report (09/18/2024 6:15 AM EST)Specimen (Source)Anatomical Location / LateralityCollection Method / VolumeCollection TimeReceived Time Narrative SYSTEMGENERATED, DOCUMENTATION - 09/18/2024 6:15 AM EST This order has been auto-finalized for image and report archival in PACs. *For full report details, please reach out to your physician. ??This image is visible to you in MyChart.* Authorizing ProviderResult TypeResult StatusMichael E Grillis DOIMG OR IMG ORDERABLESFinal Result from Last 3 Months or Most Recently Relevant to Health Maintenance Insurance Care Teams Team MemberRelationshipSpecialtyStart DateEnd Date Anitha Sweeney, [employer] PATROLLER [address] [place] [address] PCP - GeneralFamily Medicine06/01/18
[2025-08-27 15:31] VITALS: PULSE 90
[2025-08-27 15:37] LABS: Hematocrit 44.2 % (42.0-54.0); Hemoglobin 15.1 g/dL (14.0-18.0); Immature Granulocytes Abs Auto 0.02 10^3/uL (0.00-0.03); Immature Granulocytes Pct Auto 0.3 % (0.0-0.5); Lymphocytes Absolute Auto 1.9 10^3/uL (1.2-3.8); Mean Corpuscular HGB Conc 34.2 g/dL (29.9-35.2); Mean Corpuscular Hemoglobin 31.1 pg (25.9-34.0); Mean Corpuscular Volume 91.1 fL (80.0-94.0); Platelet Count 213 10^3/uL (150-450); Red Blood Count 4.85 10^6/uL (4.70-6.10); White Blood Count 6.0 10^3/uL (4.0-11.0)
[2025-08-27 15:51] LABS: Anion Gap 13.2; Blood Urea Nitrogen 16.0 mg/dL (7.0-18.0); Calcium 9.2 mg/dL (8.5-10.1); Carbon Dioxide 30.0 mmol/L (21.0-32.0); Chloride 102 mmol/L (98-107); Estimated GFR (African America >60 (>=60 mL/min/1.73m^2); Estimated GFR (Non-African Ame >60 (>=60 mL/min/1.73m^2); Glucose 99 mg/dL (74-106); Potassium 4.2 mmol/L (3.5-5.1); Sodium 141 mmol/L (136-145)
[2025-08-27 18:05] VITALS: BP 162/98; O2SAT 99
== END 2025-08-27 18:11 | disposition home or self-care (01) ==
PROVIDERS: Physician Assistant; Emergency Provider Emergency Medicine
DX: M79.662 Pain in left lower leg (principal); Z86.73 Personal history of transient ischemic attack (TIA), and cerebral infarction without residual deficits; I48.91 Unspecified atrial fibrillation
CPT/HCPCS: 36415; 80048; 85025; 93005; 93971; 99285